=== PATIENT | female | born 1980 | race Caucasian/White ===

== ENCOUNTER 2020-04-17 17:53 | Emergency (ER) | payer BC ==
[~2020-04-17] VITALS: Ht 170.2 cm; Wt 62.1 kg
--- NOTE | 2020-04-17 17:53 | NUR ---
12 lead ekg in progress
[2020-04-17 17:55] VITALS: BP_SYST 122
--- NOTE | 2020-04-17 18:15 | NUR ---
PATIENT TO ER #7 AND PLACED ON [employer], SAO2, ABP AND IV #20 TO LAC
[2020-04-17] MEDS ORDERED: FLUT16SP24 INH (18:56)
[2020-04-17] MEDS ORDERED: CIPR10DR17 EACH EYE (18:56)
[2020-04-17] MEDS ORDERED: CETI10CA PO (18:56)
[2020-04-17] MEDS: ALBUTEROL SULFATE 0.083% 2.5 MG/3 ML VIAL.NEB INH ONE (19:06)
--- NOTE | 2020-04-17 19:20 | NUR ---
recieved report. pt alert and oriented. no distress noted.
[2020-04-17 19:41] VITALS: BP_SYST 122
--- NOTE | 2020-04-17 19:42 | NUR ---
Patient given written and verbal discharge instructions and verbalizes understanding. ER MD discussed with patient the results and treatment provided. Patient in stable condition. ID arm band removed. IV catheter removed intact and dressing applied, no active bleeding. Rx of INHALER AND AZITHROMYCIN given. Patient educated on pain management and to follow up with PMD. Pain Scale 0/10. Opportunity for questions provided and answered. Medication side effect fact sheet provided.
--- NOTE | 2020-04-20 13:24 | NUR ---
Patient called today and requested her CoVID-19 laboratory test results. Patient was called back and notified her "Not Detected" Covid-10 laboratory test results and verbally instructed to follow the recommended preventive measures ([place] [facility]), patient verbalizes understanding.
== END 2020-04-17 19:31 | disposition home or self-care (01) ==
LOC: SED 17:53
DX: R07.89 Other chest pain (principal); R06.02 Shortness of breath; Z20.828 Contact with and (suspected) exposure to other viral communicable diseases
CPT/HCPCS: 71045; 86710; 93005; 94640; 99285; C9803; J7613; U0003